=== PATIENT | male | born 1965 | race Caucasian/White ===

== ENCOUNTER 2020-05-23 11:27 | Emergency (ER) | payer BC ==
--- NOTE | 2020-05-23 12:15 | EDM.PDOC ---
ED HPI GENERAL MEDICAL PROBLEM - General Chief Complaint: Cardiovascular Problem Stated Complaint: IRREGULAR HEARTBEAT Time Seen by Provider: 05/23/20 12:15 Source of Information: Reports: Patient History Limitations: Reports: No Limitations - History of Present Illness INITIAL COMMENTS - FREE TEXT/NARRATIVE: pt has had the sensation that his heart is very irregular. He has awaken in the nite because this is so remarkable. He has not had chest pain. Onset: Gradual Duration: Hour(s): Location: Reports: Generalized, Other ( irregular heart. ) Associated Symptoms: Reports: Shortness of Breath - Related Data Allergies Allergy/AdvReac Type Severity Reaction Status Date / Time No Known Allergies Allergy Verified 05/23/20 11:49 Home Meds: Home Meds Aspirin 324 mg PO DAILY 05/23/20 [History] Atropine/Hyoscy/PHENobarb/Scop [ Tablet] 16.2 mg PO ASDIRECTED PRN 05/23/20 [History] Esomeprazole [NexIUM] 20 mg PO DAILY 05/23/20 [History] Melatonin 10 mg PO BEDTIME 05/23/20 [History] hydrOXYzine HCL [Atarax] 50 mg PO BEDTIME 05/23/20 [History] oxyCODONE ER [OxyCONTIN] 10 mg PO DAILY 05/23/20 [History] tiZANidine [Zanaflex] 4 mg PO BEDTIME 05/23/20 [History] Past Medical History - Infectious Disease History Infectious Disease History: Reports: Chicken Pox - Past Surgical History GI Surgical History: Reports: Appendectomy, Cholecystectomy, Other (See Below) Other GI Surgeries/Procedures: large intestinal resection Musculoskeletal Surgical History: Reports: Other (See Below) Other Musculoskeletal Surgeries/Procedures:: back surgery Social & Family History - Tobacco Use Tobacco Use Status *Q: Current Some Day Tobacco User Years of Tobacco use: 10 Packs/Tins Daily: 0.5 - Caffeine Use Caffeine Use: Reports: Soda - Recreational Drug Use Recreational Drug Use: No ED ROS GENERAL - Review of Systems Review Of Systems: See Below Constitutional: Reports: Fatigue HEENT: Reports: No Symptoms Respiratory: Reports: No Symptoms Cardiovascular: Reports: Palpitations, Other (pt states he has ) Endocrine: Reports: No Symptoms GI/Abdominal: Reports: No Symptoms : Reports: No Symptoms Musculoskeletal: Reports: No Symptoms Skin: Reports: No Symptoms ED EXAM, GENERAL - Physical Exam Exam: See Below Free Text/Narrative:: pt appears slightly anxious. He is feeling like his heart is irregular. he has a history of pvcs. Exam Limited By: No Limitations General Appearance: Alert, No Apparent Distress, Anxious, Other (pupils equal and reactive. ) Ears: Normal TMs Nose: Normal Inspection Throat/Mouth: Normal Inspection Head: Atraumatic Neck: Normal Inspection Respiratory/Chest: No Respiratory Distress Cardiovascular: Regular Rate, Rhythm, Other (pt was monitored and he did have frequent pvcs at first but now is doing well. He has a normal mag and k. ) GI/Abdominal: Soft, Non-Tender (Male) Exam: Deferred Rectal (Males) Exam: Deferred Back Exam: Normal Inspection Extremities: Normal Inspection Neurological: Alert, Oriented, Normal Cognition Psychiatric: Anxious Course - Vital Signs Last Recorded V/S: Last Vital Signs Temp 36.7 C 05/23/20 11:43 Pulse 69 05/23/20 13:44 Resp 14 05/23/20 11:43 BP 139/80 05/23/20 13:44 Pulse Ox 98 05/23/20 11:43 - Orders/Labs/Meds Orders: Active Orders 24 hr Category Date Time Status EKG Documentation Completion [RC] ASDIRECTED Care 05/23/20 12:16 Active TSH ULTRASENSITIVE [CHEM] Stat Lab 05/23/20 13:25 Ordered EKG 12 Lead [EK] Routine Ther 05/23/20 12:16 Ordered Labs: Laboratory Tests 05/23/20 05/23/20 05/23/20 Range/Units 12:21 12:21 13:07 WBC 7.2 (4.5-11.0) K/uL RBC 4.91 (4.30-5.90) M/uL Hgb 14.6 (12.0-15.0) g/dL Hct 44.3 (40.0-54.0) % MCV 90 (80-98) fL MCH 30 (27-31) pg MCHC 33 (32-36) % Plt Count 309 (150-400) K/uL Neut % (Auto) 60 (36-66) % Lymph % (Auto) 24 (24-44) % [place] % (Auto) 10 H (2-6) % Eos % (Auto) 5 H (2-4) % Baso % (Auto) 1 (0-1) % Sodium 141 (140-148) mmol/L Potassium 4.1 (3.6-5.2) mmol/L Chloride 106 (100-108) mmol/L Carbon Dioxide 25 (21-32) mmol/L Anion Gap 10.4 (5.0-14.0) mmol/L BUN 21 H (7-18) mg/dL Creatinine 1.0 (0.8-1.3) mg/dL Est Cr Clr Drug Dosing 85.43 mL/min Estimated GFR (MDRD) > 60 (>60) Glucose 125 H (74-106) mg/dL Calcium 8.3 L (8.5-10.1) mg/dL Magnesium 2.3 (1.8-2.4) mg/dL Total Bilirubin 0.2 (0.2-1.0) mg/dL AST 14 L (15-37) U/L ALT 28 (12-78) U/L Alkaline Phosphatase 76 (46-116) U/L Troponin I < 0.017 (0.000-0.056) ng/mL Total Protein 6.5 (6.4-8.2) g/dL Albumin 3.4 (3.4-5.0) g/dL Globulin 3.1 (2.3-3.5) g/dL Albumin/Globulin Ratio 1.1 L (1.2-2.2) Meds: Medications Discontinued Medications Generic Name Dose Route Start Last Admin Trade Name Freq PRN Reason Stop Dose Admin Metoprolol Tartrate 25 mg 05/23/20 13:25 05/23/20 13:44 Metoprolol Tartrate 25 Mg Tab PO 05/23/20 13:26 25 mg ONETIME ONE Administration - Re-Assessments/Exams Free Text/Narrative Re-Assessment/Exam: 05/23/20 13:51 pt was having ventriculars on arrivAl. Since he has been here it is better. He was given metoprol tar. 25 mg. He had normal electrolytes and a normal trop. Departure - Departure Time of Disposition: 13:53 Disposition: Home, Self-Care 01 Condition: Fair Clinical Impression: Ventricular ectopic beats Referrals: PCP,None [Primary Care Provider] - Forms: ED Department Discharge Care Plan Goals: metoprol tartrate 25 at supper time, make appt with regular Dr, rtc if symptoms get worse. Sepsis Event Note (ED) - Evaluation Sepsis Screening Result: No Definite Risk - Focused Exam Vital Signs: Vital Signs Temp Pulse Pulse Resp BP BP Pulse Ox 05/23/20 13:44 69 139/80 05/23/20 11:43 36.7 C 73 14 195/91 H 98 - My Orders Last 24 Hours: My Active Orders 05/23/20 12:16 EKG Documentation Completion [RC] ASDIRECTED EKG 12 Lead [EK] Routine 05/23/20 13:25 TSH ULTRASENSITIVE [CHEM] Stat - Assessment/Plan Last 24 Hours: My Active Orders 05/23/20 12:16 EKG Documentation Completion [RC] ASDIRECTED EKG 12 Lead [EK] Routine 05/23/20 13:25 TSH ULTRASENSITIVE [CHEM] Stat
[2020-05-23] MEDS ORDERED: Metoprolol Tartrate 25 MG Tab PO ONE (13:25)
== END 2020-05-23 14:05 | disposition home or self-care (01) ==
LOC: JP.ED 11:27
DX: I49.3 Ventricular premature depolarization (principal); Z72.0 Tobacco use; Z79.82 Long term (current) use of aspirin
CPT/HCPCS: 36415; 80053; 83735; 84443; 84484; 85025; 93005; 99285; A9270; 99283

== ENCOUNTER 2021-12-31 17:05 | Emergency (ER) | payer BC | END 2021-12-31 17:56 | disposition home or self-care (01) | LOC: JP.ED 17:05 | DX: L03.115 Cellulitis of right lower limb (principal); E78.00 Pure hypercholesterolemia, unspecified; I10 Essential (primary) hypertension; F17.210 Nicotine dependence, cigarettes, uncomplicated; Z88.1 Allergy status to other antibiotic agents; Z88.7 Allergy status to serum and vaccine; Z79.82 Long term (current) use of aspirin; Z90.49 Acquired absence of other specified parts of digestive tract | CPT/HCPCS: 99283 ==